=== PATIENT | male | born 1970 | race Caucasian/White ===

== ENCOUNTER 2018-01-02 07:37 | Emergency (ER) | payer BC ==
[2018-01-02 08:26] VITALS: BP 132/72
--- NOTE | 2018-01-02 09:57 | UC ---
Respiratory Complaint HPI - HPI Summary HPI Summary: Pt c/o worsening cough, nasal congestion, generalized malaise X 2 weeks. Pt uses CPAP. - History of Current Complaint Chief Complaint: UCRespiratory Stated Complaint: CONGESTION COUGH Time Seen by Provider: 01/02/18 08:57 Hx Obtained From: Patient Onset/Duration: Lasting Weeks, Worse Since Timing: Constant Severity Initially: Mild Severity Currently: Moderate Pain Intensity: 0 Pain Scale Used: 0-10 Numeric Character: Cough: Nonproductive Aggravating Factors: Deep Breaths, Recumbent Position Alleviating Factors: Nothing Associated Signs And Symptoms: Positive: URI, Nasal Congestion Related History: Seasonal Allergies - Risk Factors Pulmonary Embolism Risk Factors: Negative Cardiac Risk Factors: Hypertension Pseudomonas Risk Factors: Negative Tuberculosis Risk Factors: Negative - Allergies/Home Medications Allergies/Adverse Reactions: Allergies Allergy/AdvReac Type Severity Reaction Status Date / Time No Known Allergies Allergy Verified 01/02/18 08:26 Home Medications: Home Medications Amlodipine Besylate [Norvasc] 10 mg PO DAILY 01/02/18 [History Confirmed ] Atorvastatin* [Lipitor 40 MG*] 40 mg PO 1700 01/02/18 [History Confirmed ] PMH/Surg Hx/FS Hx/Imm Hx Previously Healthy: Yes Cardiovascular History: Hypertension Respiratory History: Other - sleep apnea Other Respiratory History: sleep apnea - Surgical History Surgical History: Yes Surgery Procedure, Year, and Place: distal tendon tear - bicep repair. T & A - Family History Known Family History: Positive: Cardiac Disease - Social History Occupation: Employed Full-time Lives: With Family Alcohol Use: Occasionally Substance Use Type: None Smoking Status (MU): Never Smoked Tobacco Have You Smoked in the Last Year: No Review of Systems Constitutional: Fatigue Skin: Negative Eyes: Negative ENT: Sinus Congestion Respiratory: Cough Cardiovascular: Negative Gastrointestinal: Negative Genitourinary: Negative Motor: Negative Neurovascular: Negative Musculoskeletal: Myalgia Neurological: Headache Psychological: Negative Is Patient Immunocompromised?: No All Other Systems Reviewed And Are Negative: Yes Physical Exam Triage Information Reviewed: Yes Appearance: Ill-Appearing Vital Signs: Initial Vital Signs Temp 98.3 F 01/02/18 08:21 Pulse 70 01/02/18 08:21 Resp 16 01/02/18 08:21 BP 132/72 01/02/18 08:21 Pulse Ox 99 01/02/18 08:21 Vital Signs Reviewed: Yes Eye Exam: Normal ENT: Positive: Nasal congestion Dental Exam: Normal Neck exam: Normal Respiratory Exam: Other Respiratory: Positive: Decreased breath sounds Cardiovascular Exam: Normal Musculoskeletal Exam: Normal Neurological Exam: Normal Psychological Exam: Normal Skin Exam: Normal UC Diagnostic Evaluation - Laboratory O2 Sat by Pulse Oximetry: 99 Respiratory Course/Dx - Differential Dx/Diagnosis Differential Diagnosis/HQI/PQRI: Bronchitis, Influenza Provider Diagnoses: Bronchitis Discharge - Sign-Out/Discharge Documenting (check all that apply): Patient Departure All imaging exams completed and their final reports reviewed: No Studies - Discharge Plan Condition: Stable Disposition: HOME Prescriptions: Albuterol HFA INHALER* [Ventolin HFA Inhaler*] 1 - 2 puff INH Q4H PRN #1 mdi PRN Reason: Sob/Wheezing Benzonatate CAP* [Tessalon 100 MG CAP*] 100 mg PO Q8H PRN #30 cap PRN Reason: Cough DOXYcycline CAP(*) [DOXYcycline 100MG CAP(*)] 100 mg PO Q12H #20 cap predniSONE TAB* [Deltasone 20 MG TAB*] 20 mg PO DAILY #4 tab Patient Education Materials: Acute Bronchitis (ED) Referrals: Renée Rios MD [Primary Care Provider] - If Needed - Billing Disposition and Condition Condition: STABLE Disposition: Home
== END 2018-01-02 09:21 | disposition home or self-care (01) ==
LOC: UCCORT 07:37
DX: J40 Bronchitis, not specified as acute or chronic (principal); I10 Essential (primary) hypertension
CPT/HCPCS: 99212; G0463

== ENCOUNTER 2018-07-26 14:28 | Emergency (ER) | payer BC, OTHER ==
[2018-07-26 15:08] VITALS: BP 139/82
--- NOTE | 2018-07-26 15:16 | UC ---
Knee Pain HPI - HPI Summary HPI Summary: 47 yo male with the acute onset of right knee pain when he got on a skid steer now unable to bear wt occurred at work this AM no prio hx of right knee problems - History of Current Complaint Chief Complaint: UCLowerExtremity Stated Complaint: W/C RIGHT KNEE INJURY Time Seen by Provider: 07/26/18 15:09 Hx Obtained From: Patient Onset/Duration: Sudden Onset Severity Initially: Severe Severity Currently: Mild Pain Intensity: 3 Pain Scale Used: 0-10 Numeric Character: Dull, Aching, Throbbing, Spasmodic Aggravating Factor(s): Weight Bearing Alleviating Factor(s): Rest Associated Signs And Symptoms: Negative: Swelling, Redness, Bruising, Fever, Weakness, Numbness, Tingling Able to Bear Weight: No Legs: 1 - cobb here - Allergies/Home Medications Allergies/Adverse Reactions: Allergies Allergy/AdvReac Type Severity Reaction Status Date / Time No Known Allergies Allergy Verified 07/26/18 15:02 Home Medications: Home Medications Lisinopril [Lisinopril 30 MG-] 1 tab DAILY 07/26/18 [History Confirmed 07/26/18] PMH/Surg Hx/FS Hx/Imm Hx Previously Healthy: Yes Cardiovascular History: Hypertension GI/ History: Kidney Stones - Surgical History Surgical History: Yes Surgery Procedure, Year, and Place: distal tendon tear - bicep repair. T & A - Family History Known Family History: Positive: Cardiac Disease - Social History Alcohol Use: Occasionally Substance Use Type: None Smoking Status (MU): Never Smoked Tobacco Have You Smoked in the Last Year: No Review of Systems All Other Systems Reviewed And Are Negative: Yes Constitutional: Positive: Negative Skin: Positive: Negative Eyes: Positive: Negative ENT: Positive: Negative Respiratory: Positive: Negative Cardiovascular: Positive: Negative Gastrointestinal: Positive: Negative Genitourinary: Positive: Negative Motor: Positive: Negative Neurovascular: Positive: Negative Musculoskeletal: Positive: Arthralgia - right knee Neurological: Positive: Negative Psychological: Positive: Negative Physical Exam Triage Information Reviewed: Yes Appearance: Well-Appearing, No Pain Distress, Well-Nourished Vital Signs: Initial Vital Signs Temp 98.7 F 07/26/18 15:04 Pulse 91 07/26/18 15:04 Resp 16 07/26/18 15:04 BP 139/82 07/26/18 15:04 Pulse Ox 98 07/26/18 15:04 Vital Signs Reviewed: Yes Eyes: Positive: Conjunctiva Clear ENT: Positive: Hearing grossly normal, Pharyngeal erythema, Uvula midline. Negative: Nasal drainage, Tonsillar swelling, Tonsillar exudate, Trismus, Muffled voice, Hoarse voice, Sinus tenderness Neck: Positive: Supple, Nontender, No Lymphadenopathy Respiratory: Positive: Lungs clear, Normal breath sounds, No respiratory distress, No accessory muscle use Cardiovascular: Positive: RRR, No Murmur Musculoskeletal: Positive: Other: - Right knee- small effusion/pain with full extension/unable to bear wt see image Neurological: Positive: Alert Psychological Exam: Normal Skin Exam: Normal Diagnostics - Radiology No standard instances Radiology Interpretation Completed By: Radiologist Summary of Radiographic Findings: #. Small joint effusion without additional radiographic finding Knee Pain Course/Dx - Differential Dx/Diagnosis Provider Diagnosis: Internal derangement of right knee Discharge - Sign-Out/Discharge Documenting (check all that apply): Patient Departure All imaging exams completed and their final reports reviewed: No Studies - Discharge Plan Condition: Stable Disposition: HOME Prescriptions: Naproxen [Naproxen 500 mg tab] 500 mg PO BID PRN #30 tablet PRN Reason: Pain - Moderate Patient Education Materials: Hinged Knee Brace (ED), Knee Pain (ED), Crutch Instructions (ED) Forms: *Work Release Referrals: Manny Flores MD [Medical Doctor] - As Soon As Possible Additional Instructions: ice at least twice daily call Sandra Blanton in AM - Billing Disposition and Condition Condition: STABLE Disposition: Home
[2018-07-26] MEDS ORDERED: Naproxen TAB* 250 MG PO ONE (15:17)
== END 2018-07-26 16:40 | disposition home or self-care (01) ==
LOC: UCCORT 14:28
DX: M23.91 Unspecified internal derangement of right knee (principal); I10 Essential (primary) hypertension; Z79.899 Other long term (current) drug therapy
CPT/HCPCS: 99213; A9270-GY; G0463

== ENCOUNTER 2018-08-07 08:26 | Emergency (ER) | payer BC, OTHER ==
--- OUTSIDE RECORDS SUMMARY | 2018-08-07 08:33 | XMS REPORT | Continuity of Care Document ---
:1970 External Reference #:[id number] Author Name Jonathan Rg Care Team Providers Name Role Phone Renée Rios M.D. Primary Care Physician Unavailable Payers Date Identification Numbers Payment Provider Subscriber Effective: 2017 Policy Number: [id number] [employer] Sherine Valdes Group Number: [id number] [address] [address] PayID: [id number] KADNY Beard [id number] Advance Directives Description No Information Available Problems Active Problems Provider Date Body mass index 30+ - obesity Onset: 04/11/2016 Gastroesophageal reflux disease Onset: 05/26/2016 Hypertensive disorder Onset: 08/17/2009 Knee pain Onset: 04/02/2018 Mixed hyperlipidemia Onset: 08/17/2009 Obstructive sleep apnea of adult Onset: 02/09/2017 Family History Date Family Member(s) Observation Comments Father Hypertension Father Lung Cancer Social History Type Date Description Comments Sex Unknown Marital Status 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 ETOH Use Occasionally consumes alcohol Tobacco Use Start: Unknown Patient has never smoked Recreational Drug Use Denies Drug Use Smoking Status Reviewed: 07/27/18 Patient has never smoked Exercise Type/Frequency Exercises sporadically Allergies, Adverse Reactions, Alerts Description No Known Drug Allergies Medications Active Medications SIG Qnty Indications Ordering Provider Date Lisinopril 1 By Mouth Every 30tabs Unknown 02/09/2017 30mg Tablets Day Atorvastatin Calcium 1 by mouth at 30tabs Unknown 02/09/2017 40mg bedtime Tablets Amlodipine Besylate 1 by mouth every 30tabs Unknown 06/10/2010 10mg day Tablets Medications Administered in Office Medication SIG Qnty Indications Ordering Provider Date Celestone 3 mg and 3mg Manny Flores MD 07/27/2018 Injection Celestone 3 mg and 3mg Manny Flores MD 04/12/2018 Injection Immunizations CPT Code Status Date Vaccine Lot # [id number] Given 04/02/2018 Influenza Virus Vaccine, Quadrivalent, Split, Preservative Free 95068 Given 01/06/2011 Flu Vaccine 23820 Given 02/11/2010 Flu Vaccine 62370 Given 02/11/2010 Tdap - Tetanus/Diptheria/Acellular Pertussis 07630 Refused 05/26/2016 Influenza Virus 3Yrs & Over Vital Signs Date Vital Result Comment 07/27/2018 10:52am Height 72 inches 6'0" Weight 295.00 lb Heart Rate 88 /min BP Systolic Sitting 144 mmHg BP Diastolic Sitting 86 mmHg Respiratory Rate 18 /min Pain Level 6 BMI (Body Mass Index) 40.0 kg/m2 04/12/2018 8:49am Height 72 inches 6'0" Weight 306.00 lb BP Systolic Sitting 122 mmHg BP Diastolic Sitting 72 mmHg Respiratory Rate 16 /min Pain Level 5 BMI (Body Mass Index) 41.5 kg/m2 04/02/2018 9:11am Height 72 inches Weight 306.00 lb 04/02/2018 9:11am Height 72.00 inches 6'0.00" Weight 306.62 lb Heart Rate 71 /min BP Systolic 123 mmHg BP Diastolic 78 mmHg Respiratory Rate 16 /min Body Temperature 98.3 F BMI (Body Mass Index) 41.65 kg/m2 09/11/2017 3:49pm Height 72 inches Weight 298.00 lb 09/11/2017 3:49pm Height 72.00 inches 6'0.00" Weight 298.56 lb Heart Rate 64 /min BP Systolic 146 mmHg BP Diastolic 84 mmHg Respiratory Rate 18 /min Body Temperature 98.2 F BMI (Body Mass Index) 40.56 kg/m2 09/11/2017 4:51pm BP Systolic 128 mmHg BP Diastolic 71 mmHg 09/11/2017 4:51pm BP Systolic 123 mmHg BP Diastolic 78 mmHg Results Description No Information Available Procedures Date Code Description Status 07/27/2018 Inject/Drain Joint/Bursa Major W/O US Completed 04/12/2018 27712 Xray Knee 3 Views Completed 04/12/2018 Inject/Drain Joint/Bursa Major W/O US Completed Encounters Type Date Location Provider Dx Diagnosis Office Visit 04/12/2018 Orthopedic Manny Flores, M76.32 Iliotibial band 9:00[facility] MD syndrome, left leg [place] M25.562 Pain in left knee Plan of Treatment Future Appointment(s):08/09/2018 9:00 am - Manny Flores MD at [facility]08/23/2019 - Manny Flores, MDM25.461 Effusion, right kneeComments:home exercises sheets, protected weight bearing, use crutches , work on range of motionFollow up:Follow up: 2 weeks
[2018-08-07 08:52] VITALS: BP 149/82
--- NOTE | 2018-08-07 09:08 | UC ---
Respiratory Complaint HPI - HPI Summary HPI Summary: Per care nurse rn: "Head cold started over a week ago. Now has chest congestion with green productive cough x1 week. Denies fever. Uses cpap at night without good sleep. " -he had same sx last fall but waited 3.5 wks before evaluation and needed prednsone, alb and tessalone perles. CXR was neg he reports -works in [place] where pollen count is high currently -sx not that badthis time -no wheezing, no fever -used last fall's alb last night w/ good relief. tessalon perles were very helpful adn requests more. used some left over early this week which helped too -no asthma -non-smoker - History of Current Complaint Chief Complaint: UCRespiratory Stated Complaint: COUGH,CONGESTION Time Seen by Provider: 08/07/18 08:55 Pain Intensity: 0 - Allergies/Home Medications Allergies/Adverse Reactions: Allergies Allergy/AdvReac Type Severity Reaction Status Date / Time No Known Allergies Allergy Verified 08/07/18 08:49 PMH/Surg Hx/FS Hx/Imm Hx Previously Healthy: Yes Endocrine History: Dyslipidemia Cardiovascular History: Hypertension - Surgical History Surgical History: Yes Surgery Procedure, Year, and Place: distal tendon tear - bicep repair. T & A - Family History Known Family History: Positive: Cardiac Disease Negative: Respiratory Disease - no asthma - Social History Alcohol Use: Occasionally Substance Use Type: None Smoking Status (MU): Never Smoked Tobacco Have You Smoked in the Last Year: No Review of Systems All Other Systems Reviewed And Are Negative: Yes Constitutional: Positive: Fatigue. Negative: Fever, Chills Skin: Positive: Negative. Negative: Rash Eyes: Positive: Negative ENT: Positive: Negative, Sinus Congestion Respiratory: Positive: Cough. Negative: Shortness Of Breath Cardiovascular: Positive: Negative Gastrointestinal: Positive: Negative Motor: Positive: Negative Neurovascular: Positive: Negative Musculoskeletal: Positive: Negative Neurological: Positive: Negative Psychological: Positive: Negative Is Patient Immunocompromised?: No Physical Exam Triage Information Reviewed: Yes Appearance: Well-Appearing, No Pain Distress, Well-Nourished - very pleaant, good historian Vital Signs: Initial Vital Signs Temp 98.6 F 08/07/18 08:47 Pulse 70 08/07/18 08:47 Resp 18 08/07/18 08:47 BP 149/82 08/07/18 08:47 Pulse Ox 96 08/07/18 08:47 Vital Signs Reviewed: Yes Eye Exam: Normal ENT: Positive: Pharyngeal erythema - mild w/ + PND, Nasal congestion, TMs normal. Negative: Sinus tenderness Dental Exam: Normal Neck exam: Normal Neck: Positive: Supple, Nontender, No Lymphadenopathy Respiratory Exam: Normal Respiratory: Positive: Lungs clear, No respiratory distress, No accessory muscle use, Decreased breath sounds - mild b/l. Negative: Crackles, Rhonchi, Stridor, Wheezing Cardiovascular Exam: Normal Cardiovascular: Positive: RRR Abdominal Exam: Normal Musculoskeletal Exam: Normal Neurological Exam: Normal Psychological Exam: Normal Skin Exam: Normal Skin: Negative: Rashes Respiratory Course/Dx - Course Course Of Treatment: Bronchitis - viral. alb, tessalone sajan. can take medrol dose pack if sx increase or prersist. he is going to be in [place] all week for work. -We discussed risks of prednisone including but not limited to anxiety, agitation, insomnia, GI upset, elevated blood pressures and blood sugar readings , adrenal crisis and avascular necrosis of the hip. - Differential Dx/Diagnosis Differential Diagnosis/HQI/PQRI: Asthma, Bronchitis, Lower Resp Infection Provider Diagnosis: Bronchitis Discharge - Sign-Out/Discharge Documenting (check all that apply): Patient Departure All imaging exams completed and their final reports reviewed: No Studies - Discharge Plan Condition: Stable Disposition: HOME Prescriptions: Albuterol HFA INHALER* [Ventolin HFA Inhaler*] 1 - 2 puff INH Q4H PRN #1 mdi PRN Reason: Sob/Wheezing Benzonatate CAP* [Tessalon 100 MG CAP*] 100 mg PO TID PRN #30 cap PRN Reason: Cough methylPREDNISolone [Medrol Dosepak 4 MG*] 0 mg PO .SEE NADEGE INSTRUCTION 6 Days # 1 tab Patient Education Materials: Acute Bronchitis (ED) Referrals: Renée Rios MD [Primary Care Provider] - If Needed Additional Instructions: There is no evidence for any bacterial infection at this time. Drink plenty of fluids. continue using the albuterol every 4-6 hrs as needed while you are sick. do not take the prednisone unless your symptoms worsen or persist. -please keep an eye on your blood pressure adn follow up with your PCP if it continues to remain high. It may just be elevated today bc you are ill. Avoid taking any decongestants as they can raise your BP - Billing Disposition and Condition Condition: STABLE Disposition: Home
== END 2018-08-07 09:31 | disposition home or self-care (01) ==
LOC: UCCORT 08:26
DX: J40 Bronchitis, not specified as acute or chronic (principal); E78.5 Hyperlipidemia, unspecified; I10 Essential (primary) hypertension
CPT/HCPCS: 99212; G0463

== ENCOUNTER 2018-10-03 07:10 | Emergency (ER) | payer SELFPAY ==
--- OUTSIDE RECORDS SUMMARY | 2018-10-03 07:19 | XMS REPORT | Continuity of Care Document ---
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 Recreational Drug Use Never Used Drugs Allergies, Adverse Reactions, Alerts Description No Known Drug Allergies Medications Active Medications SIG Qnty Indications Ordering Provider Date Omeprazole 1 -2 by mouth 60caps Donato Lui M.D. 06/09/2016 20mg Capsules every day. Lisinopril 1 by mouth Unknown Tablets every day Amlodipine Besylate 1 by mouth Unknown every day Tablets History Medications Omeprazole 1 by mouth 30caps G47.9 Donato Lui, 05/07/2016 - 40mg every day Amanuel 06/09/2016 Capsules Vital Signs Date Vital Result Comment 09/27/2018 7:53am Weight 310.00 lb Height 72 inches 6'0" BMI (Body Mass Index) 42.0 kg/m2 BP Systolic 142 mmHg BP Diastolic 85 mmHg Heart Rate 75 /min O2 % BldC Oximetry 97 % Body Temperature 97.8 F Imogene Score 0 Pain Level 0 11/16/2017 8:34am Weight 301.00 lb Height 72 inches 6'0" BMI (Body Mass Index) 40.8 kg/m2 BP Systolic 150 mmHg BP Diastolic 73 mmHg Heart Rate 71 /min O2 % BldC Oximetry 97 % Body Temperature 98.5 F Imogene Score 2 Pain Level 0 09/15/2016 7:54am Weight 297.00 lb Height 72 inches 6'0" BMI (Body Mass Index) 40.3 kg/m2 BP Systolic 137 mmHg BP Diastolic 83 mmHg Heart Rate 68 /min O2 % BldC Oximetry 95 % Body Temperature 97.7 F Imogene Score 0 05/07/2016 1:44pm Weight 295.00 lb Height 72 inches 6'0" BMI (Body Mass Index) 40.0 kg/m2 BP Systolic 138 mmHg BP Diastolic 84 mmHg Heart Rate 95 /min O2 % BldC Oximetry 96 % Body Temperature 98.9 F Imogene Score 0 Neck Circumference in inches 17.75 Procedures Date Code Description Status 05/23/2016 48032 Sleep Study, Simultaneous Recording Of Completed Ventilation,Unattended 05/18/2016 11025 Sleep Staging 4Or More Para Completed 05/07/2016 37567 Fiberoptic Laryngoscopy,Diag. Completed Encounters Type Date Location Provider Dx Diagnosis Office Visit 11/16/2017 Main Office Donato Lui M.D. G47.33 Obstructive sleep 8:45a apnea (adult) (pediatric) E66.9 Obesity, unspecified K21.9 Gastro-esophageal reflux disease without esophagitis Office Visit 09/15/2016 8:00a Main Office Donato Lui [id number] Vahid sleep Amanuel apnea (adult) (pediatric) E66.9 Obesity, unspecified Office Visit 05/07/2016 1:45p Main Office Gifty Clark G47.9 Sleep disorder, DADA Christien unspecified R06.83 Snoring Plan of Treatment 05/07/2016 - Gifty Christine NPG47.9 Sleep disorder, [id number] SnoringNew Medication:Omeprazole 40 mgNew Orders:PSG - Sleep Study, Scheduled: 05/18/16
--- OUTSIDE RECORDS SUMMARY | 2018-10-03 07:19 | XMS REPORT | Continuity of Care Document ---
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 Recreational Drug Use Never Used Drugs Allergies, Adverse Reactions, Alerts Description No Known Drug Allergies Medications Active Medications SIG Qnty Indications Ordering Provider Date Azithromycin 2 pills x 1 day 6tabs Donato Lui, 09/27/2018 250mg then 1 every day M.D. Tablets for 4 days Prednisone 1 by mouth every 3tabs Donato Lui, 09/27/2018 10mg Tablets morning M.D. Omeprazole 1 -2 by mouth 60caps Donato Lui, 06/09/2016 20mg Capsules every day. M.D. Lisinopril 1 by mouth every Unknown Tablets day Amlodipine Besylate 1 by mouth every Unknown day Tablets History Medications Omeprazole 1 by mouth 30caps G47.9 Donato Lui, 05/07/2016 - 40mg every day M.D. 06/09/2016 Capsules Vital Signs Date Vital Result Comment 09/27/2018 7:53am Weight 310.00 lb Height 72 inches 6'0" BMI (Body Mass Index) 42.0 kg/m2 BP Systolic 142 mmHg BP Diastolic 85 mmHg Heart Rate 75 /min O2 % BldC Oximetry 97 % Body Temperature 97.8 F Broadbent Score 0 Pain Level 0 11/16/2017 8:34am Weight 301.00 lb Height 72 inches 6'0" BMI (Body Mass Index) 40.8 kg/m2 BP Systolic 150 mmHg BP Diastolic 73 mmHg Heart Rate 71 /min O2 % BldC Oximetry 97 % Body Temperature 98.5 F Broadbent Score 2 Pain Level 0 09/15/2016 7:54am Weight 297.00 lb Height 72 inches 6'0" BMI (Body Mass Index) 40.3 kg/m2 BP Systolic 137 mmHg BP Diastolic 83 mmHg Heart Rate 68 /min O2 % BldC Oximetry 95 % Body Temperature 97.7 F Broadbent Score 0 05/07/2016 1:44pm Weight 295.00 lb Height 72 inches 6'0" BMI (Body Mass Index) 40.0 kg/m2 BP Systolic 138 mmHg BP Diastolic 84 mmHg Heart Rate 95 /min O2 % BldC Oximetry 96 % Body Temperature 98.9 F Broadbent Score 0 Neck Circumference in inches 17.75 Procedures Date Code Description Status 05/23/2016 58986 Sleep Study, Simultaneous Recording Of Completed Ventilation,Unattended 05/18/2016 39359 Sleep Staging 4Or More Para Completed 05/07/2016 64479 Fiberoptic Laryngoscopy,Diag. 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 apnea (adult) (pediatric) E66.9 Obesity, unspecified K21.9 Gastro-esophageal reflux disease without esophagitis Office Visit 09/15/2016 8:00a Main Office Donato Lui G47.33 Obstructive sleep M.D. apnea (adult) (pediatric) E66.9 Obesity, unspecified Office Visit 05/07/2016 1:45p Main Office Gifty Clark G47.9 Sleep disorder, DADA Christine unspecified R06.83 Snoring Plan of Treatment 05/07/2016 - Gifty Christine NPG47.9 Sleep disorder, [id number] SnoringNew Medication:Omeprazole 40 mgNew Orders:PSG - Sleep Study, Scheduled: 05/18/16
[2018-10-03 07:26] VITALS: BP 144/84
--- NOTE | 2018-10-03 07:56 | UC ---
Respiratory Complaint HPI - HPI Summary HPI Summary: History of recurrent bronchitis and sleep apnea, recent course of azithromycin and prednisone resulted in improvement but not full resolution of symptoms. He continues to be aware of congestion in the upper chest without associated shortness of breath No fever, chills, sore throat or systemic symptoms. He uses CPAP regularly and has been able to continue use of the device. 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 - History of Current Complaint Chief Complaint: UCRespiratory Stated Complaint: COUGH Time Seen by Provider: 10/03/18 07:48 Hx Obtained From: Patient Onset/Duration: Gradual Onset, Lasting Weeks - 2 Timing: Constant Severity Initially: Moderate Severity Currently: Mild - bothered by persistent symptoms despite significant improvement following zpack and prednisone. Pain Intensity: 0 Character: Cough: Productive - clear sputum Aggravating Factors: Recumbent Position Alleviating Factors: Upright Position, Other - prednisone Associated Signs And Symptoms: Positive: Nasal Congestion. Negative: Dyspnea, Fever, Wheezing, URI - Risk Factors Pulmonary Embolism Risk Factors: Negative Cardiac Risk Factors: Negative Pseudomonas Risk Factors: Negative Tuberculosis Risk Factors: Negative - Allergies/Home Medications Allergies/Adverse Reactions: Allergies Allergy/AdvReac Type Severity Reaction Status Date / Time No Known Allergies Allergy Verified 10/03/18 07:22 PMH/Surg Hx/FS Hx/Imm Hx - Additional Past Medical History Additional PMH: morbid obesity Cardiovascular History: Hypertension Respiratory History: Other - obstructive sleep apnea - Surgical History Surgical History: Yes Surgery Procedure, Year, and Place: distal tendon tear - bicep repair. T & A - Family History Known Family History: Positive: Cardiac Disease Negative: Respiratory Disease - no asthma - Social History Occupation: Employed Full-time Lives: With Family Alcohol Use: Occasionally Substance Use Type: None Smoking Status (MU): Never Smoked Tobacco Have You Smoked in the Last Year: No Review of Systems All Other Systems Reviewed And Are Negative: Yes Constitutional: Positive: Negative ENT: Negative: Sore Throat, Ear Ache, Sinus Congestion Respiratory: Positive: Cough Is Patient Immunocompromised?: No Physical Exam Triage Information Reviewed: Yes Appearance: Well-Appearing, No Pain Distress, Obese Vital Signs: Initial Vital Signs Temp 97.9 F 10/03/18 07:16 Pulse 65 10/03/18 07:16 Resp 18 10/03/18 07:16 BP 144/84 10/03/18 07:16 Pulse Ox 98 10/03/18 07:16 Eyes: Positive: Conjunctiva Clear ENT: Positive: Pharynx normal, TMs normal Neck: Positive: Supple, Nontender, No Lymphadenopathy Respiratory: Positive: No respiratory distress, Wheezing - late expiratory wheeze. Cardiovascular: Positive: RRR, No Murmur Musculoskeletal Exam: Normal Neurological Exam: Normal Neurological: Positive: Alert, Muscle Tone Normal Psychological Exam: Normal Skin Exam: Normal Respiratory Course/Dx - Course Course Of Treatment: Discussed clinically has bronchospasm either due to prolonged viral illness or environemental allergies. Will extend course of oral prednisone and add antihistamine. - Differential Dx/Diagnosis Differential Diagnosis/HQI/PQRI: Asthma, Bronchitis, Lower Resp Infection, Sinusitis Provider Diagnosis: Bronchospasm Discharge - Sign-Out/Discharge Documenting (check all that apply): Patient Departure All imaging exams completed and their final reports reviewed: No Studies - Discharge Plan Condition: Stable Disposition: HOME Prescriptions: predniSONE [Deltasone 20 MG TAB] 2 tab PO DAILY #10 tablet Patient Education Materials: Bronchospasm (ED) Referrals: Renée Rios MD [Primary Care Provider] - Additional Instructions: Begin a 5 day course of prednisone to relieve congestion Add an antihistamine such as fexofenadine 180mg daily to address any allergic component. Follow up with Dr. Lui if you are not improving after several days of steroids. - Billing Disposition and Condition Condition: STABLE Disposition: Home
== END 2018-10-03 08:07 | disposition home or self-care (01) ==
LOC: UCCORT 07:10
DX: J98.01 Acute bronchospasm (principal); I10 Essential (primary) hypertension; G47.33 Obstructive sleep apnea (adult) (pediatric)
CPT/HCPCS: 99212; G0463